=== PATIENT | male | born 1990 | race Caucasian/White ===

== ENCOUNTER → 2021-05-05 07:32 | Outpatient (CLI) | payer BC, SELFPAY ==
--- NOTE | ~2021-05-05 | US_ITS ---
EXAMINATION: US right upper quadrant DATE: 05/05/2021 08:10 INDICATION: Epigastric abdominal pain. TECHNIQUE: Multiple grayscale and Doppler ultrasound images of the abdomen were obtained. COMPARISON: None FINDINGS: Abdominal aorta is normal in caliber. Inferior vena cava is normal. The visualized portions of the head and body of the pancreas are normal. The liver is normal without focal lesion. No liver surface nodularity. There is normal flow in main portal vein. The gallbladder is normal in size. No g allstones or gallbladder wall thickening. There is no sonographic Bolton's sign. The common duct is n ormal and measures 4 mm. IMPRESSION: 1. Normal right upper quadrant ultrasound. Reviewed, dictated and finalized at location A. [facility] [employer]
== END ==
PROVIDERS: PCP Internal Medicine; Visit Provider Internal Medicine
DX: R10.13 Epigastric pain (principal)
CPT/HCPCS: 76705